=== PATIENT | female | born 1955 ===

== ENCOUNTER 2018-02-04 00:50 | Inpatient (IN) | payer BC, OTHER ==
[~2018-02-04] VITALS: Ht 162.6 cm; Wt 87.6 kg
[2018-02-04] VITALS (13 sets, daily range): BP systolic 118–135; BP diastolic 62–89
[~2018-02-04 00:50] MED LIST: ASPI81TA94 PO; LISI-362 PO; MELO-205 PO; MULT-1335 PO; OMEP-125 PO; VITAMIN D PO
[2018-02-04] MEDS ORDERED: THROMBIN (BOVINE) 20,000 UNIT VIAL ONE (06:14)
[2018-02-04] MEDS ORDERED: PROPOFOL EMUL(*) 10MG/ML 20 ML 20 ML ONE (06:27)
[2018-02-04] MEDS ORDERED: LIDOCAINE MPF 1% 5 ML VIAL ONE (06:27)
[2018-02-04] MEDS ORDERED: ONDANSETRON 4 MG/2 ML VIAL ONE (06:27)
[2018-02-04] MEDS ORDERED: MIDAZOLAM 2 MG/2 ML VIAL ONE (06:27)
[2018-02-04] MEDS ORDERED: ROCURONIUM BROM 10 MG/ML 10 ML ONE (06:27)
[2018-02-04] MEDS ORDERED: fentaNYL CITR 100 MCG/2 ML AMP ONE ×2 (06:27→10:31)
[2018-02-04] MEDS ORDERED: DEXAMETHASONE SOD PHOS 10MG/ML ONE (06:27)
[2018-02-04] MEDS ORDERED: REMIFENTANIL HCL 1 MG VIAL ONE ×2 (06:35→09:16)
[2018-02-04] MEDS ORDERED: PHENYLEPHRINE 10 MG/1 ML VIAL ONE (06:38)
[2018-02-04] MEDS ORDERED: SUGAMMADEX SOD 500 MG/5 ML SDV ONE (10:01)
[2018-02-04] MEDS ORDERED: PREGABALIN 150 MG CAPSULE PO ONE (10:50)
[2018-02-04] MEDS ORDERED: ACETAMINOPHEN 500 MG TAB PO ONE (10:50)
[2018-02-04] MEDS ORDERED: CELECOXIB 200 MG CAP PO ONE (10:50)
[2018-02-04] MEDS ORDERED: MIDAZOLAM 2 MG/2 ML VIAL IVP PRN (10:50)
[2018-02-04] MEDS ORDERED: NORMOSOL R SOLN(*) 1000 ML BAG 1,000 ML IV PRN (10:50)
[2018-02-04] MEDS ORDERED: ceFAZolin(*) 2GM/D5W 50ML 50 ML IVPB ONE (10:50)
[2018-02-04] MEDS ORDERED: LIDOCAINE/SOD BICARB 8.4% SYR ID ONE (10:50)
[2018-02-04] MEDS ORDERED: BENZOCAINE/MENTHOL 1 EACH LOZG PO PRN (11:00)
[2018-02-04] MEDS ORDERED: APAP/HYDROCODONE 325/5 TAB PO PRN (11:00)
[2018-02-04] MEDS ORDERED: oxyCODONE HCL 5 MG CAP PO PRN (11:00)
[2018-02-04] MEDS ORDERED: LR(*) 1000 ML BAG 1,000 ML IV PRN (11:00)
[2018-02-04] MEDS ORDERED: BISACODYL 10 MG SUPP PR PRN (11:00)
[2018-02-04] MEDS ORDERED: diphenhydrAMINE 25 MG CAP PO PRN (11:00)
[2018-02-04] MEDS ORDERED: FLUSH 10 ML SYR IVP PRN (11:00)
[2018-02-04] MEDS ORDERED: MAGNESIUM HYDROXIDE* 30ML UDCP PO PRN (11:00)
--- NOTE | 2018-02-04 11:03 | RADIOLOGY IMAGING REPORT ---
FACILITY: [facility] PATIENT NAME: Daya Wen : 1955 MR: [id number] V: [id number] EXAM DATE: ORDERING PHYSICIAN: ROBERT NUÑEZ TECHNOLOGIST: Location: [facility] Patient: Daya Wen : 1955 Visit/Account:[id number] Date of Sevice: 02/04/2018 Examination: Lumbar spine single view-intraoperative HISTORY: Lumbar laminectomy. FINDINGS: 2 intraoperative lateral images are obtained of the low lumbar spine. On the first image, gauze material and a surgical instrument overlie the dorsal soft tissues at the L 4 level. There is anterolisthesis of L4 upon L5. On the second image, there has been posterior fusion procedure performed at L4-L5. Additional surgical instruments overlie the posterior elements and the disc space at L3-L4. IMPRESSION: 1. Intraoperative lumbar images with findings as above. Report Dictated By: Carlos Cao at 02/04/2018 10:28 AM Report E-Signed By: Carlos Cao at 02/04/2018 10:47 AM WSN:[email or web address]
[2018-02-04] MEDS: HYDROmorphone HCL 2 MG/ML SDV IVP PRN (12:02)
--- NOTE | 2018-02-04 12:09 | Hospitalist Consultation ---
History of Present Illness Requesting Physician Dr. Justice Reason for Consult Medical Management Chief Complaint s/p lumbar laminectomy History of Present Illness She was admitted s/p lumbar laminectomy. It is reported the surgery went well and without complication. History Problems: (1) GERD (gastroesophageal reflux disease) Status: Chronic (2) Hypertension Status: Chronic Home Meds Reported Medications [Vitamin D] No Conflict Check, 25 MG PO DAILY 01/27/18 Multivitamin With Minerals (MULTIPLE VITAMIN) 1 Each Tablet, 1 EACH PO DAILY, TAB 01/27/18 Omeprazole (OMEPRAZOLE) 20 Mg Capsule.dr, 1 CAP PO QDAY, CAP 01/27/18 Aspirin (ASPIRIN) 81 Mg Tab.chew, 81 MG PO QDAY, TAB.CHEW 01/27/18 Meloxicam (MELOXICAM) 7.5 Mg Tablet, 15 MG PO QDAY 01/27/18 Lisinopril (LISINOPRIL) 10 Mg Tablet, 10 MG PO QDAY, TAB 01/27/18 Allergies: Coded Allergies: No Known Drug Allergies (Unverified , 01/27/18) Patient History: FH: heart attack FATHER Hx Smoking: No Smoking Status: Never Smoker Caffeine Intake: Tea Caffeine/Cups Per Day: 3-4 CPD Hx Alcohol Use: No Hx Substance Use Disorder: No Review of Systems All Systems Reviewed/Normal: Yes, Except as Noted Musculoskeletal: Pain (low back) Exam Vital Signs Vital Signs Date Time Temp Pulse Resp B/P (MAP) Pulse Ox O2 Delivery O2 Flow Rate FiO2 02/04/18 11:23 72 12 94 02/04/18 06:23 97.8 120/69 (86) Room Air General Appearance: Alert, Awake, No Acute Distress, Afebrile Neuro: No Gross deficits Cardiovascular: Regular Rate and Rhythm Respiratory: No Respiratory Distress, Clear to Auscultation GI: Abd Soft and Non-Tender Psych: Alert & Oriented X3, Appropriate Mood & Affect Assessment and Plan Problems: (1) S/P lumbar laminectomy Status: Acute Assessment & Plan: Followed by Dr. Justice. (2) Hypertension Status: Chronic Assessment & Plan: She is on chronic treatment with Lisinopril. This was restarted with hold parameters. (3) GERD (gastroesophageal reflux disease) Status: Chronic Assessment & Plan: She is on chronic treatment with Omeprazole. She will be placed on Protonix during admission. Venous Thromboembolism Antithrombotics Is Pt On Any Antithrombotics?: No Prophylaxis Tx Contraindicated Pharmacological Contraindicati: Surgical Contraindication Exam Sepsis Risk: No Definite Risk ISIDRA HAYDEN Feb 04, 2018 12:09
--- NOTE | 2018-02-04 14:15 | OPERATIVE REPORT 1 ---
EVENT DATE: February 04, 2018 SURGEON: Kaleb Justice MD ANESTHESIOLOGIST: Barrera Harper MD ANESTHESIA: General endotracheal. LEAD SOFTWARE ENGINEER: Jaden Wade PA-C PREOPERATIVE DIAGNOSIS L3 through L5 spinal stenosis with neurogenic claudication and L4-L5 spondylolisthesis. POSTOPERATIVE DIAGNOSIS L3 through L5 spinal stenosis with neurogenic claudication and L4-L5 spondylolisthesis. PROCEDURE PERFORMED L3 to L5 laminectomy with L4-L5 posterolateral instrumented fusion. IV FLUIDS 2200 mL. ESTIMATED BLOOD LOSS 150 mL. IMPLANTS 6.5 mm x 40 mm pedicle screws from [employer] x two, a 45 mm connecting osiel from [employer] and two locking caps from [employer]. SPECIMENS None. DRAINS None. COMPLICATIONS Please see the below description of procedure. DISPOSITION Post anesthesia care unit. INDICATION FOR SURGERY Ms. Wen is a 62-year-old female who presented with a complaint of radiating bilateral lower extremity pain, numbness, tingling with decreased walking tolerance secondary to tiredness and heaviness in her legs. She had failed physical therapy, injections, medications and activity modifications. Her physical examination was essentially normal, but her imaging studies showed a grade 1/2 anterolisthesis of L4 on L5, and the MRI showed severe spinal stenosis at L3-L4 and L4-L5. Secondary to failure of nonsurgical care, Ms. Wen was offered and elected to undergo L3-L5 laminectomy with L4-L5 posterolateral instrumented fusion. Prior to surgery, I explained in detail to the patient the possible risks of surgery. This included bleeding, infection, damage to surrounding structures, persistent and/or worsening pain, nerve root injury, spinal fluid leak, meningitis, , blindness, sexual dysfunction, autonomic nervous system dysfunction and other unforeseen medical and surgical complications. An understanding that spinal surgery is more predictive in improving extremity discomfort than axial spine pain was stressed. DESCRIPTION OF PROCEDURE On the day of surgery, the patient was met in the preoperative hold area, and all questions were answered. The operative site was identified and marked by myself. The patient was brought in good condition to the operating room, and after succumbing to anesthesia, was placed in the prone position on a Jaylan table. All bony protuberances and soft tissues were well padded in the standard fashion. Care was taken to maintain appropriate perfusion pressures during anesthesia. Preoperative antibiotics were administered according to the appropriate timing schedule. At the conclusion of the procedure, sponge and needle count were correct x two. A final time out was undertaken by members of the operating team to confirm correct patient, correct levels and correct surgery. The patient was then prepped and draped in the standard sterile orthopedic fashion. An incision was made over the intended surgical levels, and sharp dissection was carried out down to the posterior elements. Soft tissues were elevated off the posterior elements in a subperiosteal manner. A lateral radiograph was obtained to confirm correct spinal levels. Spinous processes of L3 and L4 were removed using a Leksell rongeur and a [employer] bone cutter. The lamina was thinned down the midline using a combination of the Leksell rongeur and a 5 mm high speed latanya. The canal was then entered using a Lopez curette to undermine the superior insertion of the ligamentum flavum on the inferior aspect of the L4 lamina. A Malaga elevator was used to separate the dura from any bony or soft tissue adhesions prior to use of the Kerrison punch. Midline decompression was performed using a 3-0 and 4-0 Kerrison rongeur. Once this was accomplished, bilateral lateral recess decompressions were performed again using the 3-0 and 4-0 Kerrison punch. On the right side down at the L4-L5 level, there was a point in time where clear fluid believed to be CSF was encountered. That area was packed off and left alone through the remainder of the decompression. Care was taken to carefully decompress bilateral lateral recesses and the foramina bilaterally. At the conclusion of the decompression, a Malaga elevator was passed out through the foramen below the L4 and the L5 pedicles. Excellent decompression was achieved. Attention was then turned to the fusion portion of the procedure. Soft tissue was dissected out to the tips of the transverse processes bilaterally at L4 and L5. The appropriate starting point for pedicle screws was identified at approximately the junction of the midpoint of the transverse processes, the superior aspect of the pars interarticularis and just lateral and inferior to the superior articular process. A high-speed latanya was used to decorticate the starting point, and a Lenke type probe was advanced against resistance through the pedicles. All four pedicles were prepared in this fashion, and we placed 6.5 mm x 40 mm screws in bilateral pedicles at L4 and L5. Neurophysiologic monitoring was used to test the screws, which all tested well above 20 mA. Attention was then turned to placement of the connecting rods and reduction of the L4-L5 slip. On the right side, we were easily able to place the reduction device. On the left side, this was much more difficult, and as the reduction device was being placed, the screw moved significantly. I tested the screw again with electrophysiologic monitoring, and it still tested high. I was ultimately able to attach the reduction device to the L4 screw head there, and we went ahead and sequentially reduced the L4-L5 slip as best as we could using the reduction tools. Unfortunately, the L4 screw on the left appeared to be significantly loose once we removed the reduction tools and I checked this. It turned out that the pedicle on that side had fractured, essentially in the sagittal plane, resulting in an inability to perform bilateral fixation. I therefore took the L4 screw and the L5 screw on the left out, and went ahead and completed the fusion portion of the procedure by decorticating the transverse processes, both on the right and the left, and packing a combination of demineralized bone mix, allograft bone chips and all of the previously milled local bone into the lateral recesses. A lateral radiograph was obtained that showed excellent placement of the instrumentation. Prior to placement of the bone graft, the wound was irrigated with copious sterile saline solution, and no further CSF leak was seen. Despite this, given concern for potential of an ongoing spinal fluid leak, I did go ahead and place DuraGen in the region of the lateral gutter there at L4-L5 on the right and then sealed the entire laminectomy defect with DuraSeal. Multiple Valsalva maneuvers were performed, and no persistent spinal fluid leak was noted. After irrigation, bone grafting and utilization of the DuraSeal, the wound was then closed in layers using interrupted sutures for the deep fascia, inverted interrupted sutures for the subcutaneous tissue and then a running subcuticular skin stitch. Sponge and needle counts were correct x two. POSTOPERATIVE CARE PLAN We will keep Ms. Wen flat overnight, and then gradually raise the head of bed starting tomorrow morning. Once she is upright and without any postural headaches, then we will get her up with physical therapy. I will go ahead and obtain a rigid lumbosacral orthosis for her, given the fact that we only have unilateral fixation, and her bone does seem to be somewhat soft. She will follow up two weeks postoperatively in my office for wound check and examination. GARRY
[2018-02-04] MEDS: ONDANSETRON 4 MG/2 ML VIAL IVP PRN ×2 (14:41→18:21)
[2018-02-04] MEDS ORDERED: PANTOPRAZOLE SOD 40 MG TABEC PO ONE (15:40)
[2018-02-04] MEDS: ceFAZolin(*) 2GM/D5W 50ML 50 ML IVPB SCH (16:34)
[2018-02-04] MEDS ORDERED: MAG HYD/AL HYD/SIMETH 30ML UDC PO PRN (17:35)
[2018-02-04] MEDS: ACETAMINOPHEN 500 MG TAB PO PRN (20:37)
[2018-02-04] MEDS: DOCUSATE SODIUM 100 MG CAP PO SCH (20:37)
[2018-02-05] MEDS: ceFAZolin(*) 2GM/D5W 50ML 50 ML IVPB SCH ×2 (00:34→08:43)
[2018-02-05] MEDS: ACETAMINOPHEN(*)1000 MG/100 ML 100 ML IVPB PRN (03:31)
[2018-02-05 03:52] VITALS: BP 131/68
[2018-02-05 07:20] VITALS: BP 129/75
[2018-02-05] MEDS: DOCUSATE SODIUM 100 MG CAP PO SCH ×2 (08:38→20:19)
[2018-02-05] MEDS: LISINOPRIL 10 MG TAB PO SCH (08:39)
[2018-02-05] MEDS: PANTOPRAZOLE SOD 40 MG TABEC PO SCH (08:39)
[2018-02-05] MEDS: ACETAMINOPHEN 500 MG TAB PO PRN ×3 (08:42→21:00)
[2018-02-05 08:59] VITALS: Ht 162.6 cm; Wt 87.6 kg
--- NOTE | 2018-02-05 10:49 | Hospitalist Progress Note ---
Subjective Progress Notes Subjective She has no concerns this morning. She did have worsening nausea overnight, which has resolved. She believed it was from increased acid reflux. Patient Complains of: Cardiovascular: No: Chest Pain Respiratory: No: Shortness of Breath Physical Exam Vital Signs Date Time Temp Pulse Resp B/P (MAP) Pulse Ox O2 Delivery O2 Flow Rate FiO2 02/05/18 07:20 98.3 57 129/75 (93) 93 02/05/18 03:52 16 Nasal Cannula 2.0 Intake and Output 02/06/18 06:59 Intake Total 480 ml Balance 480 ml Intake Oral 480 ml # Voids 1 General Appearance: Alert, Awake, No Acute Distress, Afebrile Neuro: No Gross deficits Cardiovascular: Regular Rate and Rhythm Respiratory: No Respiratory Distress, Clear to Auscultation GI: Soft and Non-Tender Psych: Alert & Oriented X3, Appropriate Mood & Affect Assessment and Plan Problems: (1) S/P lumbar laminectomy Status: Acute Assessment & Plan: Followed by Dr. Justice. (2) Hypertension Status: Chronic Assessment & Plan: She is on chronic treatment with Lisinopril. This was restarted with hold parameters. (3) GERD (gastroesophageal reflux disease) Status: Chronic Assessment & Plan: She is on chronic treatment with Omeprazole. She will be placed on Protonix during admission. Exam Sepsis Risk: No Definite Risk ISIDRA HAYDEN WHEEL AND AXLE INSPECTOR Feb 05, 2018 10:49
[2018-02-05 12:27] VITALS: BP 122/65
[2018-02-05] MEDS: DIAZEPAM 5 MG TAB PO PRN ×2 (14:35→21:00)
[2018-02-05 18:28] VITALS: BP 126/68
[2018-02-05 22:54] VITALS: BP 138/72
--- NOTE | 2018-02-05 23:40 | EKG ---
[place] [facility] [place] NAME: MIGUEL BAUTISTA : [id number] MR: [id number] V: [id number] EXAM DATE: ORDERING PHYSICIAN: MYLA SPARKS TECHNOLOGIST: MARIAM Test Reason : CP Blood Pressure : / mmHG Vent. Rate : 091 BPM Atrial Rate : 091 BPM P-R Int : 146 ms QRS Dur : 086 ms QT Int : 376 ms P-R-T Axes : 047 045 083 degrees QTc Int : 462 ms Sinus rhythm with premature atrial complexes Anterior infarct , age undetermined Nonspecific T wave changes Abnormal ECG No previous ECGs available Confirmed by MYLA LAN ([id number]) on 02/06/2018 6:35:14 AM Referred By: Confirmed By:MYLA LAN
[2018-02-05] MEDS ORDERED: GI COCKTAIL 60 ML BTL PO PRN (23:45)
[2018-02-06] MEDS: HYDROmorphone HCL 2 MG/ML SDV IVP PRN (00:12)
--- NOTE | 2018-02-06 00:12 | Miscellaneous Provider Note ---
Miscellaneous Provider Note Note The patient states she developed some L upper abdomen/lower chest pain about 4 hours ago. The pain is associated with some nausea but no diaphoresis. She states she has had this pain before at home and it usually resolves on its own but is more severe this evening. She has a history of GERD. She does not have history of CAD. She has HTN. She took Valium 10mg at 2100. She denies feeling short of breath but does say if she takes a deep breath the pain is intensified. She does not have a cough. She has had SCDs in place all day except when out of bed to the bathroom or to ambulate with PT. On exam she does appear to be uncomfortable. VS remain stable. She is tender to palpation in the left upper abdomen. L chest wall is not tender. Heart is RR&R with occasional ectopy. Lungs are clear anteriorly. A/P: Upper abdominal/lower chest pain. EKG unchanged from preop EKG in chart. Will order lipase and troponin. Will try a GI cocktail. She has had SCDs on the entire day and has been out of bed several times. Her O2 requirements have not changed. Continue to monitor. Consider CT of the chest if her pain persists. MYLA SPARKS MD Feb 06, 2018 00:12
[2018-02-06] MEDS ORDERED: ATRO/SCOPOL/HYOSCY/PB 5 ML ELX ONE (00:18)
[2018-02-06] MEDS ORDERED: MAG HYD/AL HYD/SIMETH 30ML UDC ONE (00:19)
[2018-02-06] MEDS ORDERED: LIDOCAINE 2% VISC SLN 15ML UDC ONE (00:19)
[2018-02-06 02:50] VITALS: BP 134/86
[2018-02-06] MEDS: ACETAMINOPHEN 500 MG TAB PO PRN ×2 (05:30→21:23)
[2018-02-06] MEDS: DIAZEPAM 5 MG TAB PO PRN (05:30)
[2018-02-06 07:58] VITALS: BP 151/87
[2018-02-06] MEDS ORDERED: NS(*) 0.9% 1000 ML BAG 1,000 ML IV ONE ×2 (08:05→14:25)
[2018-02-06] MEDS: DOCUSATE SODIUM 100 MG CAP PO SCH ×2 (08:55→21:17)
[2018-02-06] MEDS: LISINOPRIL 10 MG TAB PO SCH (08:55)
[2018-02-06] MEDS: ONDANSETRON 4 MG/2 ML VIAL IVP PRN (08:55)
[2018-02-06] MEDS: PANTOPRAZOLE SOD 40 MG TABEC PO SCH (08:56)
[2018-02-06] MEDS ORDERED: IOPAMIDOL 76% 100 ML INFUS BTL 100 ML ONE (09:16)
[2018-02-06] MEDS ORDERED: NS 0.9% 25 ML BAG 50 ML ONE (09:17)
--- NOTE | 2018-02-06 09:27 | Hospitalist Progress Note ---
Subjective Progress Notes Subjective She has continued complaints of left upper quadrant abdominal pain and left lower chest pain which extends to the sternum, which started late last night. She has had some nausea. She has a history of GERD. She does not have history of CAD. She has HTN. She denies feeling short of breath but does say if she takes a deep breath the pain is intensified. She does not have a cough. She has had SCD's in place all day except when out of bed to the bathroom or to ambulate with PT. Patient Complains of: Cardiovascular: Chest Pain Respiratory: No: Cough, Shortness of Breath Gastrointestinal: Other (left upper quadrant pain) Physical Exam Vital Signs Date Time Temp Pulse Resp B/P (MAP) Pulse Ox O2 Delivery O2 Flow Rate FiO2 02/06/18 07:58 97.6 82 18 151/87 (108) 95 Nasal Cannula 1.0 Intake and Output 02/07/18 00:59 Intake Total 600 ml Balance 600 ml Intake Oral 600 ml # Voids 1 General Appearance: Alert, Awake, No Acute Distress, Afebrile Neuro: No Gross deficits Cardiovascular: Regular Rate and Rhythm Respiratory: No Respiratory Distress, Clear to Auscultation GI: Other (pain upon palpation to left upper quadrant, sternum pain to left chest) Extremities: Soft and Non Tender, Warm, Perfused, No Edema Psych: Alert & Oriented X3, Appropriate Mood & Affect Assessment and Plan Problems: (1) S/P lumbar laminectomy Status: Acute Assessment & Plan: Followed by Dr. Justice. She has developed some L upper abdomen/lower chest pain last night. She has not required increase in oxygen nor has a cough. She has a history of GERD. VS are stable, EKG, Troponin and Lipase performed are normal. We will order a CTA pulmonary angiogram and abdominal and pelvis CT to assess patient for any problems. (2) Hypertension Status: Chronic Assessment & Plan: She is on chronic treatment with Lisinopril. This was restarted with hold parameters. (3) GERD (gastroesophageal reflux disease) Status: Chronic Assessment & Plan: She is on chronic treatment with Omeprazole. She will be placed on Protonix during admission. Exam Sepsis Risk: No Definite Risk ISIDRA HAYDEN [facility] Feb 06, 2018 09:27
[2018-02-06 10:47] VITALS: BP 118/56
--- NOTE | 2018-02-06 10:49 | RADIOLOGY IMAGING REPORT ---
FACILITY: [facility] PATIENT NAME: Daya Wen : 1955 MR: [id number] V: [id number] EXAM DATE: ORDERING PHYSICIAN: ISIDRA HAYDEN TECHNOLOGIST: [place] [facility] [place]: Daya Wen : 1955 Visit/Account:[id number] Date of Sevice: 02/06/2018 CT angiogram chest with contrast Indication: Left-sided chest pain. Left upper quadrant pain. Comparison: None available. Technique: Axial CT images are obtained through the chest after administration of 100 mL Isovue 370 I V contrast. Reformatted coronal and sagittal images were reviewed as well as coronal MIP images. One of the following dose optimization techniques was utilized in the performance of this exam: Automated exposure control; adjustment of the mA and/or kV according to the patient's size; or use of an itera tive reconstruction technique. Specific details can be referenced in the facility's radiology CT ex am operational policy. FINDINGS: The pulmonary arteries are well-opacified with contrast. Within the left lower lobe, there is an ant erior subsegmental filling defect identified compatible with an acute pulmonary embolus. No other de finite left-sided filling defects are seen. On the right side, there is a filling defect seen within 2 adjacent segmental vessels within the lower lobe (image 133). Findings are consistent with bilate ral pulmonary emboli. No additional right-sided filling defects. The right ventricle to left vent ricle ratio is normal. No axillary adenopathy. No hilar or mediastinal adenopathy. No pericardial effusion or pleural effusion. Examination of the lung windows demonstrates dependent lower lobe atelectasis slightly greater on the left than on the right. No consolidation or bronchograms. There is a small hiatal hernia. Degenerative disc disease involves the thoracic spine. No compression fracture. IMPRESSION: 1. Acute, segmental/subsegmental pulmonary emboli within the lower lobes bilaterally. 2. Lower lobe atelectasis. 3. Hiatal hernia. Report Dictated By: Carlos Cao at 02/06/2018 10:38 AM Report E-Signed By: Carlos Cao at 02/06/2018 10:45 AM WSN:[id number]
--- NOTE | 2018-02-06 11:27 | RADIOLOGY IMAGING REPORT ---
FACILITY: [facility] PATIENT NAME: Daya Wen : 1955 MR: [id number] V: [id number] EXAM DATE: ORDERING PHYSICIAN: ISIDRA HAYDEN TECHNOLOGIST: Location: [facility] Patient: Daya Wen : 1955 Visit/Account:[id number] Date of Sevice: 02/06/2018 Computed tomograpy abdomen and pelvis with IV contrast Indication: Left upper quadrant abdominal pain. Recent spinal fusion procedure. Comparison: None available. Technique: Transaxial computed tomography images were obtained through the abdomen and pelvis follo wing the injection of nonionic iodinated intravenous contrast. Reformatted coronal and sagittal image s were also obtained. One of the following dose optimization techniques was utilized in the performance of this exam: Autom ated exposure control; adjustment of the mA and/or kV according to the patient's size; or use of an i terative reconstruction technique. Specific details can be referenced in the facility's radiology C T exam operational policy. Contrast: 100 ml of Isovue-370 IV contrast. Findings: Lower lung bertrand: There is dependent atelectasis involving both lower lobes. See today's chest CT r eport for further detail. There is a small hiatal hernia. Liver: There is marked, diffuse fatty liver. No focal parenchymal abnormality. Biliary: There has been previous cholecystectomy. No intrahepatic or extra hepatic biliary dilatatio n. Pancreas: Normal appearance. Spleen: Normal appearance. Adrenal glands: Unremarkable. Kidneys / retroperitoneum: No stones or hydronephrosis is identified. There is an exophytic right mi dpole cyst. Bowel / peritoneum / mesenteries: There are a few scattered colonic diverticula. No evidence of wall thickening or focal colitis. No evidence of small bowel obstruction. Appendix has likely been prev iously removed. Possibly at the time of hysterectomy was performed. Lymph node assessment: No pathologic adenopathy identified. Pelvic structures: Prior hysterectomy. No free fluid. Vessels: Scattered atherosclerotic calcifications seen throughout a nonaneurysmal abdominal aorta and branches. Musculoskeletal / Body wall: There has been recent posterior instrumented fusion procedure performed at L4-L5 with pedicle screws and vertical rods. Laminectomy defects were performed and there is a vikash ne graft material within the operative bed posterolaterally. There is some stranding within the retr operitoneum along the psoas musculature with scattered flecks of gas. This is all felt to be expecte d postoperative change. The stranding/edema extends into the pelvis along the iliopsoas musculature. No large well-defined hematoma or fluid collection is seen. No free intraperitoneal air. IMPRESSION: 1. Postoperative changes from recent posterior instrumented fusion procedure L4-L5 with laminectomie s and posterior lateral bone graft placement. 2. Diffuse fatty liver. 3. Simple appearing right renal cyst. 4. Changes of prior hysterectomy and likely appendectomy. Correlate clinically. Report Dictated By: Carlos Cao at 02/06/2018 10:45 AM Report E-Signed By: Carlos Cao at 02/06/2018 11:24 AM WSN:[id number]
[2018-02-06] MEDS: RIVAROXABAN 10 MG TAB PO SCH ×2 (11:44→21:17)
[2018-02-06] MEDS: ACETAMINOPHEN(*)1000 MG/100 ML 100 ML IVPB PRN (11:51)
[2018-02-06 14:54] VITALS: BP 117/77
[2018-02-06 23:27] VITALS: BP 122/95
[2018-02-07 03:47] VITALS: BP 131/73
[2018-02-07] MEDS: DIAZEPAM 5 MG TAB PO PRN ×2 (05:36→11:52)
[2018-02-07] MEDS: ACETAMINOPHEN 500 MG TAB PO PRN ×2 (05:36→11:52)
[2018-02-07 09:15] VITALS: BP 117/68
[2018-02-07] MEDS ORDERED: ACET-2043 PO (09:19)
[2018-02-07] MEDS ORDERED: RIV10 PO (09:19)
[2018-02-07] MEDS ORDERED: CELE-1 PO (09:26)
--- NOTE | 2018-02-07 09:33 | Hospitalist Progress Note ---
Subjective Progress Notes Subjective No cp/sob. No concerns from staff or patient. Physical Exam Vital Signs Date Time Temp Pulse Resp B/P (MAP) Pulse Ox O2 Delivery O2 Flow Rate FiO2 02/07/18 03:47 98.6 88 14 131/73 (92) 95 Nasal Cannula 1.0 General Appearance: Alert, Awake, No Acute Distress Cardiovascular: Regular Rate and Rhythm Respiratory: Clear to Auscultation Imaging CTA of chest - 1. Acute, segmental/subsegmental pulmonary emboli within the lower lobes bilaterally. 2. Lower lobe atelectasis. 3. Hiatal hernia. Assessment and Plan Problems: (1) Pulmonary embolism Status: Acute Assessment & Plan: She had developed some L upper abdomen/lower chest pain the night before last. Troponin and lipase were wnl. CTA pulmonary angiogram showed bilateral segmental and subsegmental PE. Likely, secondary to recent surgery and being bed bound related to dural tear. She has never had a clot before. We will defer to her PCP about doing a hypercoagulable work up and the duration of anticoagulation. The patient has been started on Xarelto and Dr. Justice is aware. Currently, she is on room air and doing well. However, she might need to go home with O2. If she does, she will follow up with her PCP to check O2 requirements. (2) S/P lumbar laminectomy Status: Acute Assessment & Plan: Followed by Dr. Justice. (3) Hypertension Status: Chronic Assessment & Plan: She is on chronic treatment with Lisinopril. (4) GERD (gastroesophageal reflux disease) Status: Chronic Assessment & Plan: She is on chronic treatment with Omeprazole. She will be placed on Protonix during admission. Copies to: MONICA FELIX MD Exam Sepsis Risk: No Definite Risk BRUNILDA LAMBERT MD Feb 07, 2018 09:33
[2018-02-07] MEDS: LISINOPRIL 10 MG TAB PO SCH (09:39)
[2018-02-07] MEDS: RIVAROXABAN 10 MG TAB PO SCH (09:41)
[2018-02-07] MEDS: DOCUSATE SODIUM 100 MG CAP PO SCH (09:41)
[2018-02-07] MEDS: PANTOPRAZOLE SOD 40 MG TABEC PO SCH (09:41)
[2018-02-07] MEDS ORDERED: LOR5/325 PO (09:43)
[2018-02-07] MEDS ORDERED: DOCU240C84 PO (09:44)
[2018-02-07] MEDS ORDERED: DIA5 PO (09:44)
== END 2018-02-07 12:20 | disposition home health service (06) | DRG 459 ==
LOC: OR 00:50 → MED 11:23
PROVIDERS: ADMIT Orthopaedic Surgery; ATTEND Orthopaedic Surgery
PROC: 01NB0ZZ Release Lumbar Nerve, Open Approach (ICD-10-PCS; 2018-02-04)
PROC: 00UT0JZ Supplement Spinal Meninges with Synthetic Substitute, Open Approach (ICD-10-PCS; 2018-02-04)
PROC: 0SG0071 Fusion of Lumbar Vertebral Joint with Autologous Tissue Substitute, Posterior Approach, Posterior Column, Open Approach (ICD-10-PCS; principal; 2018-02-04 07:04)
DX: M48.062 Spinal stenosis, lumbar region with neurogenic claudication (principal); I26.99 Other pulmonary embolism without acute cor pulmonale; J95.89 Other postprocedural complications and disorders of respiratory system, not elsewhere classified; G97.41 Accidental puncture or laceration of dura during a procedure; M51.16 Intervertebral disc disorders with radiculopathy, lumbar region; M43.16 Spondylolisthesis, lumbar region; K21.9 Gastro-esophageal reflux disease without esophagitis; I10 Essential (primary) hypertension; Y83.8 Other surgical procedures as the cause of abnormal reaction of the patient, or of later complication, without mention of misadventure at the time of the procedure; Y79.3 Surgical instruments, materials and orthopedic devices (including sutures) associated with adverse incidents; Z90.710 Acquired absence of both cervix and uterus; Z90.49 Acquired absence of other specified parts of digestive tract; Z96.653 Presence of artificial knee joint, bilateral
CPT/HCPCS: 36415; 71275; 72020; 74177; 83690; 84484; 86850; 86900; 86901; 93005; 97162; C1713; C1763; J0131; J0690; J1100; J1170; J2001; J2250; J2370; J2405; J2704; J3010; J7030; J7120; Q9967